=== PATIENT | male | born 1950 | race Caucasian/White ===

== ENCOUNTER → 2016-08-11 | Outpatient (CLI) | payer OTHER ==
[~2016-08-11] MED LIST: ATOR-22 PO; LISI40TA PO; TAMS0.4C38 PO; bladder medication
== END | disposition home or self-care (01) ==
LOC: C.PATHSPEC 17:13
PROVIDERS: ATTEND Urology
DX: C61 Malignant neoplasm of prostate (principal)

== ENCOUNTER → 2016-08-23 | Outpatient (CLI) | payer OTHER ==
[~2016-08-23] MED LIST changes: +OPTIRAY 320 IV PRN
--- NOTE | 2016-08-23 08:52 | DIAGNOSTIC IMAGING REPORT ---
CT OF THE ABDOMEN AND PELVIS WITH CONTRAST CLINICAL HISTORY: Prostate cancer. Elevated PSA. COMPARISON STUDY: None. TECHNIQUE: Following IV administration of 93 mL of Optiray-320, axial images of the abdomen and pelvis were obtained from the lung bases to the proximal femurs. Images were reviewed in the axial, sagittal, and coronal planes. IV contrast was administered without complication. Oral contrast was administered. CT DOSE: 1190.62 mGycm FINDINGS: Lung bases are clear. The liver, adrenal glands and pancreas are unremarkable. There is a splenule. There is no biliary or pancreatic ductal dilatation. Note is made of a 3.8 cm cyst arising from the upper pole of the right kidney. There is an 8 mm cyst within the midpole of the left kidney. There is no hydronephrosis or hydroureter. No enlarged abdominal or pelvic lymph nodes are present. There is a prominent right external iliac lymph node shown on image [id number] that measures 7 mm in short axis diameter. This is not pathologically enlarged. No suspicious osseous lesions are present. There are multiple healed left-sided rib fractures. IMPRESSION: 1. No convincing evidence for metastatic disease within the abdomen or pelvis. 2. Prominent but nonenlarged right external iliac lymph node. This is likely benign but can be assessed on subsequent exams. 3. Multiple healed left-sided rib fractures. No blastic metastases identified within visualized skeletal structures. Electronically signed by: Parth Ross M.D. 08/23/2016 8:50 AM Dictated Date/Time: 08/23/2016 8:39 AM
--- NOTE | 2016-08-23 12:46 | DIAGNOSTIC IMAGING REPORT ---
WHOLE BODY BONE SCAN HISTORY: Prostate cancer. RADIOTRACER: 27.3 mCi Tc-99m MDP STUDY/IMAGES: Planar anterior and posterior whole body imaging was performed 3 hours following the intravenous administration of radiotracer. COMPARISON: Abdomen and pelvis CT 08/23/2016. FINDINGS: Scattered areas of mild radiotracer uptake seen within the shoulders, sternoclavicular joints, lower lumbar spine, cervicothoracic junction, knees, and left first MTP joint suggestive of degenerative change. Mild radiotracer uptake associate with a few left posterior ribs consistent with old, healed fractures. No suspicious areas of radiotracer uptake identified. 2 punctate foci of radiotracer uptake at the midline of the frontal sinuses is unlikely to represent metastatic disease. IMPRESSION: 1. No suspicious areas of radiotracer uptake within the axial or appendicular skeleton to suggest metastatic disease. 2. Scattered areas of radiotracer uptake as described above likely represent a combination of degenerative and posttraumatic changes. 3. There are 2 punctate foci of radiotracer uptake midline of the frontal sinuses which is unlikely to represent metastatic disease. Follow-up is recommended to ensure stability Electronically signed by: Saad Bauer M.D. 08/23/2016 12:44 PM Dictated Date/Time: 08/23/2016 12:41 PM
== END | disposition home or self-care (01) ==
LOC: C.CTS 07:29
PROVIDERS: ATTEND Urology
DX: N52.9 Male erectile dysfunction, unspecified (principal); C61 Malignant neoplasm of prostate; R93.0 Abnormal findings on diagnostic imaging of skull and head, not elsewhere classified

== ENCOUNTER → 2016-10-28 | Day surgery (SDC) | payer OTHER ==
[2016-10-12 11:02] VITALS: BMI 33.0
--- NOTE | 2016-10-12 11:29 | PAT Medication Instructions ---
Service Date October 12, 2016. Current Home Medication List Atorvastatin (Lipitor), 1 TAB PO QAM Lisinopril (Zestril), 40 MG PO QAM Medication Instructions For Your Scheduled Surgery - Hold the following medications the morning of surgery: Lisinopril (Zestril), 40 MG PO QAM - Take the following medications the morning of surgery with a sip of water: Atorvastatin (Lipitor), 1 TAB PO QAM If you have any questions please call us at [phone] or [phone] or [phone]
[2016-10-12 12:08] LABS: URINE APPEARANCE CLEAR (CLEAR); URINE BILIRUBIN NEG (NEG); URINE COLOR YELLOW; URINE EPITHELIAL CELL AUTO 0-5 /lpf (0-5); URINE NITRITE NEG (NEG); URINE PH 5.5 (4.5-7.5); UROBILINOGEN NEG (NEG)
--- NOTE | 2016-10-12 12:11 | DIAGNOSTIC IMAGING REPORT ---
CHEST 2 VIEWS ROUTINE CLINICAL HISTORY: Preoperative chest COMPARISON STUDY: No previous studies for comparison. FINDINGS: The cardiac and mediastinal contours are normal. There is no evidence of focal pulmonary consolidation. There is no evidence of failure. No pleural effusions are visualized.[ There are presumed postsurgical changes in the left shoulder. IMPRESSION: No active disease in the chest. Electronically signed by: Reji Beck M.D. 10/12/2016 12:10 PM Dictated Date/Time: 10/12/2016 12:09 PM
[2016-10-12 12:14] LABS: BASO % 0.3 %; BASO ABS # 0.02 K/uL (0-0.2); COMPLETE YES; EOS % 1.8 %; HEMATOCRIT 42.7 % (42-52); IG% 0.3 %; LYMPH % 24.5 %; LYMPH ABS # 1.52 K/uL (1.2-3.4); MEAN CELL VOLUME 90.9 fL (80-100); MEAN CORPUSCULAR HEMOGLOBIN 30.9 pg (25-34); MEAN PLATELET VOLUME 10.3 fL (7.4-10.4); MONO % 16.4 %; NEUT % 56.7 %; PLATELET COUNT 227 K/uL (130-400); WHITE BLOOD COUNT 6.21 K/uL (4.8-10.8)
[2016-10-12 12:17] LABS: BUN/CREATININE RATIO 16.8 (10-20); CREATININE 1.2 mg/dl (0.60-1.40); POTASSIUM 4.6 mmol/L (3.5-5.1)
[2016-10-12 12:17] LABS: MANUAL MICROSCOPIC REQUIRED? NO; REVIEW REQ? NO
[2016-10-12 12:19] LABS: CALCIUM 9.5 mg/dl (8.5-10.1)
[~2016-10-28] VITALS: Ht 180.3 cm; Wt 108.4 kg
[~2016-10-28] MED LIST changes: +ATROPINE SULFATE 0.1 MG/ML 5ML SYR IV PRN; +CIPROFLOXACIN / D5W 400 MG IV SCH; +CONRAY 60% 50 ML VIAL ONE; +DEXAMETHASONE SOD INJ 4 MG/ML VIAL ONE; +EpHEDrine SULFATE 50MG/5ML SYR ONE; +EpHEDrine SULFATE INJ 50 MG/ML AMP IV PRN; +FENTANYL CITRATE INJ 50 MCG/1 ML 2 ML VIAL IV PRN; +FENTANYL CITRATE INJ 50 MCG/1 ML 2 ML VIAL ONE; +FLUMAZENIL 0.1 MG/1 ML 10 ML VIAL IV PRN; +GENTAMICIN INJ 120 MG in DEXTROSE 5% 100ML 100 ML IV SCH; +GLYCOPYRROLATE INJ 0.2 MG/ML VIAL ONE; +HYDROmorphone INJ 2 MG/ML SYR/VIAL IV PRN; +LABETALOL HCL IV 5 MG/ML 20ML IV PRN; +LACTATED RINGER'S 1000ML 1,000 ML IV SCH; +LARYING-O-JET KIT (LTA) ONE; +LIDOCAINE HCL 2% 2 ML VIAL (20MG/ML) ONE; +MEPERIDINE HCL 25 MG/ML CARP IV PRN; +MIDAZOLAM HCL 1 MG/ML 2ML VIAL ONE; +NALOXONE HCL 0.4 MG/1 ML VIAL/CARP IV PRN; +NEOMYCIN/POLYMYX/BACITR OINT 15 GM TUBE ONE; +NEOSTIGMINE METHYLSULFATE 5 MG/5 ML SYR ONE; +ONDANSETRON INJ 2 MG/ML 2 ML VIAL IV PRN; +ONDANSETRON INJ 2 MG/ML 2 ML VIAL ONE; -OPTIRAY 320 IV PRN; +OXYCODONE/ACETAMINOPHEN 5-325 TAB PO PRN; +PHENAZOPYRIDINE HCL 200 MG TAB PO PRN; +PHENYLEPHRINE 100MCG/ML 5ML SYR IV PRN; +PHENYLEPHRINE 100MCG/ML 5ML SYR ONE; +PROPOFOL IV EMULSION 10 MG/ML 20 ML VIAL IV ONE; +ROCURONIUM BROMIDE 10 MG/ML 5 ML VIAL ONE
[2016-10-28 05:53] VITALS: BP 172/81; PULSE 59; TEMP 36.5; O2SAT 95; Ht 180.3 cm; Wt 108.4 kg
--- NOTE | 2016-10-28 07:12 | History & Physical Bridge Note ---
H&P Re-Evaluation Bridge Note: I have examined the patient, reviewed the History & Physical and in the interval since the performance of the History & Physical I have noted the following changes of clinical significance: No changes noted
--- NOTE | 2016-10-28 09:59 | Discharge Instructions ---
Discharge Instructions Date of Service Oct 28, 2016. Admission Reason for Admission: Prostate Cancer Discharge Discharge Diagnosis / Problem: Prostate cancer s/p brachytherapy of the prostate Discharge Goals Goal(s): Improve disease control, Therapeutic intervention Activity Recommendations Activity Limitations: per Instructions/Follow-up section Lifting Limitations: no more than 25 pounds, gradually increase as tolerated ( over 3-5 days) Exercise/Sports Limitations: rest today, gradually increase as tolerated (over 3-5 days) May Resume Sexual Activity: after follow-up appointment Shower/Bathe: tomorrow Driving or Machine Use: resume 1 day after discharge Proximity cautions as discussed due to radioactive seeds . Discharge Diet Recommended Diet: Regular Diet (good fluid intake) Procedures Procedures Performed: Volume brachy therapy Pending Studies Studies pending at discharge: no Medical Emergencies . Who to Call and When: Medical Emergencies: If at any time you feel your situation is an emergency, please call 911 immediately. . Non-Emergent Contact Non-Emergency issues call your: Urologist Call Non-Emergent contact if: you have a fever, temperature is above 101, your pain is not controlled, your pain is worsening, your pain is unusual for you, your pain is concerning you, wound has increased drainage, wound has increased redness, wound has increased pain . . "Provider Documentation" section prepared by Landen Guzman. . VTE Core Measure Inpt VTE Proph given/why not?: SCD's
--- NOTE | 2016-10-28 10:07 | [facility] Post Operative Brief Note ---
Immediate Operative Summary Operative Date Oct 28, 2016. Pre-Operative Diagnosis Rogerio 4+3 Prostate Cancer Post-Operative Diagnosis Same as pre-operative Procedure(s) Performed Volume brachytherapy of the prostate Surgeon Dr. Landen Guzman MD Process Cheese Cooker Surgeon(s) Dr. Jose Richards Estimated Blood Loss 5 ml Findings 53 seeds placed via 17 needles, 30.4 cc prostate Specimens None per surgeon Drains Silicone harris to gravity Anesthesia GAET Complication(s) None Disposition Recovery Room / PACU
--- NOTE | 2016-10-28 10:11 | DIAGNOSTIC IMAGING REPORT ---
PELVIS 1 OR 2 VIEWS ROUTINE CLINICAL HISTORY: BRACHY THERAPY COMPARISON STUDY: None. FINDINGS: Total fluoroscopy time is 1.8 seconds. A single fluoroscopic spot image of the pelvis. There is contrast within the bladder. Multiple brachytherapy seeds are seen at the expected location of the prostate gland. IMPRESSION: Fluoroscopy provided for brachytherapy seed placement. Electronically signed by: Saad Bauer M.D. 10/28/2016 10:09 AM Dictated Date/Time: 10/28/2016 10:09 AM
--- NOTE | 2016-10-28 10:17 | Anesthesiology Progress Note ---
Anesthesia Post Op Note Date & Time Oct 28, 2016 at 10:17 Vital Signs Pain Intensity: 0 Vital Signs Past 12 Hours Date Time Temp Pulse Resp B/P (MAP) Pulse Ox O2 Delivery O2 Flow Rate FiO2 10/28/16 10:10 59 17 146/69 100 Mask 10 10/28/16 10:00 70 23 149/61 96 Mask 10 10/28/16 09:50 36.1 80 15 135/72 100 Mask 10 10/28/16 05:53 36.5 59 18 172/81 (111) 95 Room Air Notes Mental Status: alert / awake / arousable, participated in evaluation Pt Amnestic to Procedure: Yes Nausea / Vomiting: adequately controlled Pain: adequately controlled Airway Patency, RR, SpO2: stable & adequate BP & HR: stable & adequate Hydration State: stable & adequate Anesthetic Complications: no major complications apparent
[2016-10-28 10:35] VITALS: BP 142/73; PULSE 53; TEMP 36.4; O2SAT 97
[2016-10-28 11:05] VITALS: BP 136/72; PULSE 55; TEMP 36.6; O2SAT 97
[2016-10-28 11:35] VITALS: BP 135/72; PULSE 53; TEMP 36.6; O2SAT 97
--- NOTE | 2016-11-03 14:10 | OPERATIVE REPORT ---
DATE OF OPERATION: 10/28/2016 PREOPERATIVE DIAGNOSIS: [place] 4+3 adenocarcinoma of the prostate. POSTOPERATIVE DIAGNOSIS: Same. PROCEDURES PERFORMED: Include volumetric ultrasound guided analysis and brachytherapy of the prostate gland. SURGEONS: Dr. Landen Guzman and Dr. Garrett Richards. MANAGER VIDEO: Adolph Castillo. ANESTHESIA: General anesthesia with endotracheal intubation. ESTIMATED BLOOD LOSS: Minimal. FINDINGS: 53 seeds placed via 17 needles and 30.4 mL prostate gland. COMPLICATIONS: None. ESTIMATED BLOOD LOSS: Minimal. DRAINS LEFT IN PLACE: Include a Danielle catheter to gravity drainage. BRIEF HISTORY: Mr. Villatoro is a pleasant 66-year-old male who I have seen as an outpatient for a new diagnosis of prostate cancer. After discussion of risks and benefits of various forms of intervention, he has decided upon brachytherapy of the prostate gland with planned external beam boost to manage his disease. Please see H&P for further details. He is being brought into the hospital for this purpose. Intravenous antibiotic coverage was provided. SCDs used for DVT prophylaxis. The patient has followed his prep as instructed. PROCEDURE: The patient was properly identified and brought to the operative suite. After identification of appropriate consent on the chart, general anesthesia with endotracheal intubation was initiated. The patient was prepped and draped in standard fashion for this procedure. multimedia instructional designer-out procedure was followed. A transrectal ultrasound probe was placed into the rectum under direct visualization and excellent visualization of the prostate was noted. The volumetric analysis was performed demonstrating 30.4 mL prostate gland. Danielle catheter had been entered into the bladder and after draining the bladder this was filled with [place] and aerated gel placed within the catheter for easier identification over the course of the case. A peripheral pass of needles was performed and after calculation by the radiation oncology service the initial pass of seeds was placed. Five central needles were placed as necessary. After this to complete coverage of the gland with excellent dispersion of the radiation dose throughout the case. As noted, a total of 53 seeds placed via 17 needles were appreciated. [place] were also verified in terms of their location on fluoroscopy where necessary. After completion of the case the fluoroscopic image was taken demonstrating good seed placement. Bladder was drained and transrectal ultrasound probe was removed. Perineal pressure was held and bacitracin placed over the needle passage sites. The patient tolerated the procedure well without difficulties. Anesthesia was reversed. The patient was transferred to recovery room in stable condition. FOLLOW-UP CARE: Trial of void will take place in the radiation oncology suite after imaging was completed. The patient will be discharged home later today. Complete medications as previously prescribed. Outpatient appointments are confirmed. The patient is instructed to contact our service should he note any fevers, chills, nausea, vomiting or other significant difficulties in the postoperative period. I attest to the content of the Intraoperative Record and any orders documented therein. Any exception s are noted below.
== END | disposition home or self-care (01) ==
LOC: C.ACU 05:35
PROVIDERS: ATTEND Urology
DX: C61 Malignant neoplasm of prostate (principal); N52.9 Male erectile dysfunction, unspecified; I10 Essential (primary) hypertension; E78.5 Hyperlipidemia, unspecified; Z79.899 Other long term (current) drug therapy

== ENCOUNTER → 2017-02-25 | Outpatient (CLI) | payer OTHER ==
[~2017-02-25] MED LIST changes: -ATROPINE SULFATE 0.1 MG/ML 5ML SYR IV PRN; -CIPROFLOXACIN / D5W 400 MG IV SCH; -CONRAY 60% 50 ML VIAL ONE; -DEXAMETHASONE SOD INJ 4 MG/ML VIAL ONE; -EpHEDrine SULFATE 50MG/5ML SYR ONE; -EpHEDrine SULFATE INJ 50 MG/ML AMP IV PRN; -FENTANYL CITRATE INJ 50 MCG/1 ML 2 ML VIAL IV PRN; -FENTANYL CITRATE INJ 50 MCG/1 ML 2 ML VIAL ONE; -FLUMAZENIL 0.1 MG/1 ML 10 ML VIAL IV PRN; -GENTAMICIN INJ 120 MG in DEXTROSE 5% 100ML 100 ML IV SCH; -GLYCOPYRROLATE INJ 0.2 MG/ML VIAL ONE; -HYDROmorphone INJ 2 MG/ML SYR/VIAL IV PRN; -LABETALOL HCL IV 5 MG/ML 20ML IV PRN; -LACTATED RINGER'S 1000ML 1,000 ML IV SCH; -LARYING-O-JET KIT (LTA) ONE; -LIDOCAINE HCL 2% 2 ML VIAL (20MG/ML) ONE; -MEPERIDINE HCL 25 MG/ML CARP IV PRN; -MIDAZOLAM HCL 1 MG/ML 2ML VIAL ONE; -NALOXONE HCL 0.4 MG/1 ML VIAL/CARP IV PRN; -NEOMYCIN/POLYMYX/BACITR OINT 15 GM TUBE ONE; -NEOSTIGMINE METHYLSULFATE 5 MG/5 ML SYR ONE; -ONDANSETRON INJ 2 MG/ML 2 ML VIAL IV PRN; -ONDANSETRON INJ 2 MG/ML 2 ML VIAL ONE; -OXYCODONE/ACETAMINOPHEN 5-325 TAB PO PRN; -PHENAZOPYRIDINE HCL 200 MG TAB PO PRN; -PHENYLEPHRINE 100MCG/ML 5ML SYR IV PRN; -PHENYLEPHRINE 100MCG/ML 5ML SYR ONE; -PROPOFOL IV EMULSION 10 MG/ML 20 ML VIAL IV ONE; -ROCURONIUM BROMIDE 10 MG/ML 5 ML VIAL ONE; -bladder medication
[2017-02-25 09:04] VITALS: BP 138/89; PULSE 61; TEMP 36.6; O2SAT 98
--- NOTE | 2017-02-25 10:28 | Radiation Oncology Follow-Up ---
Radiation Oncology Follow-Up Date of Visit Feb 25, 2017. Reason For Visit One-month follow-up in cancer survivorship care plan Radiation Completion Date seed implant on 10-28-2016 and IMRT / IGRT 01-27-2017 Diagnosis (1) Prostate cancer Status: Resolved Onset Date: 06/2010 Location: both lobes of the prostate Histology Subtype: adenocarcinoma Stage: ll Permanent Comment: Status post prostate biopsy June 2010 revealing adenocarcinoma [place] 3+3 Repeat biopsy November 2010 negative for carcinoma Active surveillance with steady rise in PSA to 14.8 Clinical stage cT2a Ultrasound-guided biopsies 08/11/2016 Adenocarcinoma Rogerio 3+3 and 4+3 Prostate volume 41.2 Prostate density 0.359 Lupron injection 22 5 mg 10/21/2016, planned for 6 months Status post prostate seed implant as boost 10/28/2016 53 seeds were placed, 8500 cGy. Status post IMRT/IGRT VMAT completed 01/27/2017 received 4500 cGy Last Edited By: Zoya Cardoso on Feb 03, 2017 08:19 History of Present Illness Mr. Villatoro is a 66-year-old male with a strong family history of prostate cancer. The patient has a maternal uncle who was treated in his early 70s with external radiation. He is now 78 and is alive and well. He has a brother who was diagnosed with prostate cancer treated with a prostatectomy and is alive and well at age 59 and a second brother who was diagnosed with a history of prostate cancer treated with a prostatectomy and is alive and well at age 64. The patient also has 2 sons age 41 and 47. I stressed the importance of their starting their screening process. The patient's was initially diagnosed with a prostate-specific antigen in the range of 6 back in 2009 2010. He was seen by Dr. Johnson a urologic surgeons in [place] who performed ultrasound-guided biopsy on Mr. Villatoro. Reportedly there were positive biopsies were Rogerio grade 3+3. The details of this biopsy will be obtained with request for pathology reports from [facility]. The patient sought a second opinion at [facility] and was seen by Dr. Vides. He performed a repeat biopsy on 11/30/2010. A total of 13 biopsies were taken in all 13 were negative for carcinoma. Accession #: [id number]. Given the likelihood of minimal early stage disease the decision was made at that time to proceed with active surveillance. The patient was followed with serial prostate-specific antigens. He reportedly was found to have a rising prostate-specific antigen and was encouraged to have a repeat biopsy at [facility]. Because of insurance issues however this was not done. On 01/2014 his prostate-specific antigen was 10.62. On 07/31/2014 prostate- specific antigen was 11.74. On 05/19/2016 prostate-specific antigen increased to 14.8. At that time the patient was seen by Dr. Landen Guzman for further evaluation. He had an abnormal digital rectal exam and biopsy was recommended. On 08/11/2016 patient underwent ultrasound-guided prostate biopsies. A total of 14 biopsies were taken. Biopsies from the left base and left mid gland and left anterior were benign. 22 biopsies from the right base were positive for adenocarcinoma Rogerio grade 4+3 involving 60% and 15% of the core tissue samples respectfully. No perineural invasion was seen. The Rogerio pattern 4 represented 80% of the adenocarcinoma. 22 biopsies from the right mid gland were positive for adenocarcinoma Champion grade 4+3 involving 50% and 30% of the core tissue samples respectfully. The Rogerio pattern 4 represented 90% of the adenocarcinoma and was highly suspicious for perineural invasion. One of 2 biopsies from the right apex were positive for adenocarcinoma Champion grade 4+3 involving 10% of the core tissue sample with no perineural invasion seen. The Rogerio pattern 4 was 95% of the tumor. One biopsy of the left anterior were positive for adenocarcinoma Champion grade 3+3 involving 5% of the core tissue sample with no perineural invasion seen. One biopsy from the right anterior were positive for adenocarcinoma Rogerio grade 3+3 involving less than 5% of the core tissue sample with no perineural invasion seen. Therefore a total of 7 out of 14 biopsies were +6 of them on the right and one on the left. 2 of the biopsies were Rogerio grade 3+3 and 5 of the biopsies were Champion grade 4+ 3. The Rogerio pattern 4 was 80-95% of the tumor and there was evidence highly suspicious for perineural invasion. Case: [id number]. The patient return to discuss these findings with Dr. Landen Guzman. He proceeded to stage the patient with CT scan of the abdomen and pelvis and bone scan performed on 08/23/2016. The CT scan of the abdomen and pelvis showed no convincing evidence of metastatic disease within the abdomen or pelvis. There were prominent but not enlarged right external iliac lymph node likely benign but suggested follow-up. There were multiple healed left-sided rib fractures but no blastic metastasis identified. The bone scan showed no suspicious areas or radiotracer uptake to suggest metastatic disease. The patient's clinical stage is therefore T2a Nx [place] grade 4+3 presenting prostate-specific antigen 14.8. Dr. Guzman discussed treatment options with the patient including a discussion of the potential use of robotic radical prostatectomy. He was kind enough to ask us to see the patient to discuss with him the potential radiation treatment options. The patient ultimately made the decision to undergo hormone suppression followed by a prostate seed implant as boost. He'll then have external beam radiation. A prostate seed implant was performed 10/28/2016. 53 seeds were placed. He then returned and underwent IMRT/IGRT VMAT. This was completed 01/27/2017. Interim History He's been doing well over the past month. He has steady improvement in his urinary status. Today he gave an AUA score of 1. His score at the end of treatment was 5. He had been having difficulty with urination and was on Flomax. This was increased to twice a day. He had talked to Dr. Guzman and has now tapered down to 1 per day. He is planning to steadily wean off of the Flomax. He completed expanded prostate cancer index composite for clinical practice and gave a score of 2 of 12 in urinary incontinence symptoms. He gave a score of 0 of 12 urinary irritation symptoms. He gave a score of 0 of 12 bowel symptoms. He gave a score of 9 of 12 sexual symptoms. He gave a score of 2 of 12 and hormonal vitality symptoms. His total was 13 of 60. He did complete 6 months of hormonal suppression. Allergies Coded Allergies: No Known Allergies (Unverified , 10/12/16) Home Medications Scheduled Atorvastatin (Lipitor), 1 TAB PO QAM Lisinopril (Zestril), 40 MG PO QAM Tamsulosin Hcl (Flomax), 1 CAP PO DAILY Review of Systems Gastrointestinal: Symptoms: WNL Oral: Symptoms: No Problems Respiratory: Symptoms: WNL Urinary: Symptoms: WNL Skin: Symptoms: No Problems Additional Notes: He completed a distress management report and answered "no" to all questions. Physical Exam Vital Signs Date Time Temp Pulse Resp B/P (MAP) Pulse Ox O2 Delivery O2 Flow Rate FiO2 02/25/17 09:04 36.6 61 16 138/89 98 Pain: Side: Bilateral Patient Pain Scale: 0 - 10 Initial Pain Intensity: 0.0 Fatigue: None General Appearance: no apparent distress Eyes: normal inspection, EOMI ENT: normal ENT inspection, hearing grossly normal Neck: no adenopathy, thyroid normal Respiratory/Chest: lungs clear, no respiratory distress, no accessory muscle use Cardiovascular: regular rate, rhythm, no gallop, no murmur Abdomen: non tender, soft, no organomegaly Extremities: no pedal edema Neurologic/Psychiatric: no motor/sensory deficits, alert, normal mood/affect Laboratory Studies Test 02/25/17 09:35 Prostate Specific Antigen 0.022 ng/ml (0.000-4.000) Assessment & Plan Plan: A PSA was drawn today. He'll be notified as to the results. She has a recheck appointment with Dr. Guzman next month. He is going to steadily wean off of the Flomax. Today we completed a cancer survivorship care plan. A copy of the document was given to the patient. He was given a survivorship booklet. We asked him to return to our office in 6 months. He may call if he has any questions or concerns in the interim. Total Time In Follow-Up I spent [address] the patient performing examination. I spent 20 minutes reviewing information, preparing the survivorship document, and completing this note. Copy To Landen Guzman MD, Urology; [place] Rodriguez M.D.
== END | disposition home or self-care (01) ==
LOC: C.ONC 08:45
PROVIDERS: ATTEND Physician Assistant Medical
DX: Z08 Encounter for follow-up examination after completed treatment for malignant neoplasm (principal); Z92.3 Personal history of irradiation; Z85.46 Personal history of malignant neoplasm of prostate

== ENCOUNTER → 2017-06-27 | Outpatient (CLI) | payer OTHER ==
--- NOTE | 2017-06-27 16:05 | DIAGNOSTIC IMAGING REPORT ---
L UPPER EXT JOINT WITHOUT CLINICAL HISTORY: LT ROTATOR CUFF TEAR postoperative pain TECHNIQUE: Multiaxial MRI acquisition COMPARISON STUDY: None FINDINGS: Extensive postoperative change involving the rotator cuff and lateral margin of the humeral head. Multiple sutures are present. There appears to be disruption of the supraspinatus musculotendinous junction. There is partial retraction of the supraspinatus muscle. There is a partial tear of the subscapularis tendon. The infraspinatus tendon appears to be grossly intact. Generalized degenerative changes of the glenohumeral joint. Glenoid labrum shows evidence for deterioration circumferentially. IMPRESSION: 1. Extensive postoperative and degenerative change throughout the left shoulder. 2. Full-thickness tear of the supraspinatus musculotendinous junction with moderate fatty replacement of the supraspinatus. 3. Partial thickness tear with superimposed tendinopathy of the subscapularis tendon. 4. Small joint effusion with a rather extensive post procedural granulation type tissue. 5. Small caliber biceps tendon raising the possibility of a high-grade partial tear. The above report was generated using voice recognition software. It may contain grammatical, syntax or spelling errors. Electronically signed by: Navid Pedraza M.D. 06/27/2017 4:04 PM Dictated Date/Time: 06/27/2017 3:41 PM
== END | disposition home or self-care (01) ==
LOC: C.MRIBC 14:48
PROVIDERS: ATTEND Orthopaedic Surgery
DX: M75.102 Unspecified rotator cuff tear or rupture of left shoulder, not specified as traumatic (principal)

== ENCOUNTER → 2017-08-25 | Outpatient (CLI) | payer OTHER ==
[2017-02-25 09:04] VITALS: BP 138/89; PULSE 61
[~2017-08-25] MED LIST changes: +RXC5 PO
[2017-08-25 14:08] VITALS: BP 142/87; PULSE 75; TEMP 36.7; O2SAT 96
--- NOTE | 2017-08-25 14:55 | Radiation Oncology Follow-Up ---
Radiation Oncology Follow-Up Date of Visit Aug 25, 2017. Reason For Visit Six-month follow-up Radiation Completion Date Seed Implant - 10/28/16, IMRT - 01/27/17 Diagnosis (1) Prostate cancer Status: Resolved Onset Date: ~ 06/2010 Location: Both lobes of the prostate Histology Subtype: Adenocarcinoma Stage: ll Permanent Comment: Status post prostate biopsy June 2010 revealing adenocarcinoma [place] 3+3 Repeat biopsy November 2010 negative for carcinoma Active surveillance with steady rise in PSA to 14.8 Clinical stage cT2a Ultrasound-guided biopsies 08/11/2016 Adenocarcinoma Rogerio 3+3 and 4+3 Prostate volume 41.2 Prostate density 0.359 Lupron injection 22 5 mg 10/21/2016, planned for 6 months Status post prostate seed implant as boost 10/28/2016 53 seeds were placed, 8500 cGy. Status post IMRT/IGRT VMAT completed 01/27/2017 received 4500 cGy Last Edited By: Zoya Cardoso on Feb 03, 2017 08:19 History of Present Illness Mr. Villatoro has a strong family history of prostate cancer. The patient has a maternal uncle who was treated in his early 70s with external radiation. He is now 78 and is alive and well. He has a brother who was diagnosed with prostate cancer treated with a prostatectomy and is alive and well at age 59 and a second brother who was diagnosed with a history of prostate cancer treated with a prostatectomy and is alive and well at age 64. The patient also has 2 sons age 41 and 47. I stressed the importance of their starting their screening process. The patient's was initially diagnosed with a prostate-specific antigen in the range of 6 back in 2009 2010. He was seen by Dr. Alex traore urologic surgeons in [place] who performed ultrasound-guided biopsy on Mr. Villatoro. Reportedly there were positive biopsies were [place] grade 3+3. The details of this biopsy will be obtained with request for pathology reports from [facility]. The patient sought a second opinion at [facility] and was seen by Dr. Vides. He performed a repeat biopsy on 11/30/2010. A total of 13 biopsies were taken in all 13 were negative for carcinoma. Accession #: [id number]. Given the likelihood of minimal early stage disease the decision was made at that time to proceed with active surveillance. The patient was followed with serial prostate-specific antigens. He reportedly was found to have a rising prostate-specific antigen and was encouraged to have a repeat biopsy at [facility]. Because of insurance issues however this was not done. On 01/2014 his prostate-specific antigen was 10.62. On 07/31/2014 prostate- specific antigen was 11.74. On 05/19/2016 prostate-specific antigen increased to 14.8. At that time the patient was seen by Dr. Landen Guzman for further evaluation. He had an abnormal digital rectal exam and biopsy was recommended. On 08/11/2016 patient underwent ultrasound-guided prostate biopsies. A total of 14 biopsies were taken. Biopsies from the left base and left mid gland and left anterior were benign. 22 biopsies from the right base were positive for adenocarcinoma Rogerio grade 4+3 involving 60% and 15% of the core tissue samples respectfully. No perineural invasion was seen. The Rogerio pattern 4 represented 80% of the adenocarcinoma. 22 biopsies from the right mid gland were positive for adenocarcinoma Rogerio grade 4+3 involving 50% and 30% of the core tissue samples respectfully. The [place] pattern 4 represented 90% of the adenocarcinoma and was highly suspicious for perineural invasion. One of 2 biopsies from the right apex were positive for adenocarcinoma Rogerio grade 4+3 involving 10% of the core tissue sample with no perineural invasion seen. The [place] pattern 4 was 95% of the tumor. One biopsy of the left anterior were positive for adenocarcinoma Rogerio grade 3+3 involving 5% of the core tissue sample with no perineural invasion seen. One biopsy from the right anterior were positive for adenocarcinoma [place] grade 3+3 involving less than 5% of the core tissue sample with no perineural invasion seen. Therefore a total of 7 out of 14 biopsies were +6 of them on the right and one on the left. 2 of the biopsies were [place] grade 3+3 and 5 of the biopsies were [place] grade 4+ 3. The Rogerio pattern 4 was 80-95% of the tumor and there was evidence highly suspicious for perineural invasion. Case: [id number]. The patient return to discuss these findings with Dr. Landen Guzman. He proceeded to stage the patient with CT scan of the abdomen and pelvis and bone scan performed on 08/23/2016. The CT scan of the abdomen and pelvis showed no convincing evidence of metastatic disease within the abdomen or pelvis. There were prominent but not enlarged right external iliac lymph node likely benign but suggested follow-up. There were multiple healed left-sided rib fractures but no blastic metastasis identified. The bone scan showed no suspicious areas or radiotracer uptake to suggest metastatic disease. The patient's clinical stage is therefore T2a Nx [place] grade 4+3 presenting prostate-specific antigen 14.8. Dr. Guzman discussed treatment options with the patient including a discussion of the potential use of robotic radical prostatectomy. He was kind enough to ask us to see the patient to discuss with him the potential radiation treatment options. The patient ultimately made the decision to undergo hormone suppression followed by a prostate seed implant as boost. He'll then have external beam radiation. A prostate seed implant was performed 10/28/2016. 53 seeds were placed. He then returned and underwent IMRT/IGRT VMAT. This was completed 01/27/2017. Interim History He has been doing well over the past 6 months. He did try stopping Flomax. He did have increased difficulty with urination went off of the medication. He restarted and continues on the Flomax. Today he gave an AUA score of 2. He completed and expanded prostate cancer index composite for clinical practice and gave a score of 2 of 12 and urinary incontinence symptoms. He gives score 0 of 12 and urinary irritation symptoms. He gave a score of 0 12 and bowel symptoms. He gave a score of 2 of 12 and sexual symptoms. He gave a score of 1 of 12 and hormonal vitality symptoms. His total was 5 of 60. He had a PSA February 25, 2017 that was 0.022. Allergies Coded Allergies: No Known Allergies (Unverified , 08/02/17) Home Medications Scheduled Atorvastatin (Lipitor), 1 TAB PO QAM Lisinopril (Zestril), 40 MG PO QAM Scheduled PRN Tamsulosin Hcl (Flomax), 1 CAP PO DAILY PRN for prn Review of Systems Gastrointestinal: Symptoms: WNL Oral: Symptoms: No Problems Respiratory: Symptoms: WNL Urinary: Symptoms: WNL Comments: See AUA & EPIC - Continues flomax Skin: Symptoms: No Problems Physical Exam Vital Signs Date Time Temp Pulse Resp B/P (MAP) Pulse Ox O2 Delivery O2 Flow Rate FiO2 08/25/17 14:08 36.7 75 16 142/87 96 Fatigue: None General Appearance: no apparent distress Eyes: normal inspection, EOMI ENT: normal ENT inspection, hearing grossly normal Respiratory/Chest: lungs clear, no respiratory distress, no accessory muscle use Cardiovascular: regular rate, rhythm, no gallop, no murmur Abdomen: non tender, soft, no organomegaly Anal / Rectum: Normal sphincter tone. Prostate is consistent with a seed implant. No rectal masses no rectal bleeding. Extremities: no pedal edema Neurologic/Psychiatric: no motor/sensory deficits, alert, normal mood/affect Skin: warm/dry Pain Management Patient Reports Pain: No Side: Bilateral Patient Preferred Pain Scale: 0 - 10 Initial Pain Intensity: 0.0 Pain Management Plan He denies pain therefore requires no pain management. Laboratory Laboratory Results: were reviewed Laboratory Comments: Reviewed in the interim history. As a PSA for today is pending. Pathology Pathology Results: were reviewed, and pertinent findings noted in HPI Imaging Imaging Studies: not applicable Assessment & Plan Plan: He will continue regular follow-up with his primary care provider and urology. He has an appointment next month with Dr. Guzman. We discussed alternating visits. The PSA should continue every 6 months. We asked him to return to our office in 1 year. The plan would be for him to see Dr. Guzman again in 6 months after his next visit. He is going to continue on the Flomax. I did review with him that if he would need a refill he may call our office. He plans to get these refilled either with Dr. Guzman or his primary care physician. He may call our office if he has any questions or concerns before his next visit. Total Time In Follow-Up I spent 20 minutes speaking to the patient and performing examination. I spent 15 minutes reviewing information and completing this note. Copy To Landen Guzman MD, Urology; Paresh Vincent D.O.
== END | disposition home or self-care (01) ==
LOC: C.ONC 14:03
PROVIDERS: ATTEND Physician Assistant Medical
DX: Z08 Encounter for follow-up examination after completed treatment for malignant neoplasm (principal); Z92.3 Personal history of irradiation; Z85.46 Personal history of malignant neoplasm of prostate

== ENCOUNTER 2017-09-02 08:47 | Inpatient (IN) | payer OTHER ==
[2017-08-02 10:36] VITALS: BMI 36.0
--- NOTE | 2017-08-02 11:14 | PAT Medication Instructions ---
Service Date Aug 02, 2017. Current Home Medication List Atorvastatin (Lipitor), 1 TAB PO QAM Lisinopril (Zestril), 40 MG PO QAM Tamsulosin Hcl (Flomax), 1 CAP PO DAILY PRN for prn Medication Instructions For Your Scheduled Surgery - Hold the following medications the morning of surgery: Lisinopril (Zestril), 40 MG PO QAM Tamsulosin Hcl (Flomax), 1 CAP PO DAILY PRN for prn - Take the following medications the morning of surgery with a sip of water: Atorvastatin (Lipitor), 1 TAB PO QAM - Take the following medications as scheduled the night before surgery: Tamsulosin Hcl (Flomax), 1 CAP PO DAILY PRN for prn If you have any questions please call us at [phone] or [phone] or [phone]
[2017-08-02 12:30] LABS: BASO % 0.3 %; BASO ABS # 0.02 K/uL (0-0.2); EOS % 1.9 %; EOS ABS # 0.12 K/uL (0-0.5); HEMATOCRIT 36.9 % (42-52); HEMOGLOBIN 12.5 g/dL (14.0-18.0); IG# 0.02 K/uL (0.00-0.02); LYMPH % 17.8 %; LYMPH ABS # 1.12 K/uL (1.2-3.4); MEAN CELL VOLUME 91.8 fL (80-100); MEAN CORPUSCULAR HEMOGLOBIN 31.1 pg (25-34); MEAN CORPUSCULAR HGB CONC 33.9 g/dl (32-36); MEAN PLATELET VOLUME 9.9 fL (7.4-10.4); MONO % 15.4 %; MONO ABS # 0.97 K/uL (0.11-0.59); NEUT % 64.3 %; NEUT ABS # 4.03 K/uL (1.4-6.5); PLATELET COUNT 232 K/uL (130-400); RED CELL DISTRIBUTION WIDTH SD 50.7 fL (36.4-46.3); WHITE BLOOD COUNT 6.28 K/uL (4.8-10.8)
[2017-08-02 12:45] LABS: PTT PATIENT 28.5 SECONDS (21.0-31.0)
[2017-08-02 12:47] LABS: CALCIUM 9.1 mg/dl (8.5-10.1); CREATININE 1.05 mg/dl (0.60-1.40); POTASSIUM 4.1 mmol/L (3.5-5.1)
--- NOTE | 2017-09-01 08:41 | HISTORY & PHYSICAL EXAMINATION ---
DATE OF ADMISSION: 09/02/2017 CHIEF COMPLAINT: Rotator cuff arthropathy of the left shoulder. HISTORY OF PRESENT ILLNESS: Jamil is a 67-year-old male with history of 2 prior rotator cuff repairs. Unfortunately, he has continued to have a lot of pain and weakness of his shoulder. MRI and clinical examination were diagnostic for rotator cuff arthropathy of the left shoulder. After failing conservative treatment, he has elected to proceed with a reverse left shoulder arthroplasty. PAST MEDICAL HISTORY: Significant for hypertension, prostate cancer, and hyperlipidemia. PAST SURGICAL HISTORY: Significant for left rotator cuff repair one done in and the other in , low back surgery in the , Achilles repair in , right rotator cuff repair in the , and hernia repair. ALLERGIES: None. MEDICATIONS: Include lisinopril and atorvastatin. FAMILY HISTORY: Significant for prostate cancer and diabetes. SOCIAL HISTORY: Single, but has a girlfriend locally and 3 children who live locally; has plenty of help at home. He denies any tobacco, alcohol or IV drug use. REVIEW OF SYSTEMS: He complains of left shoulder pain and weakness. All other pertinent review of systems is negative. PHYSICAL EXAMINATION: GENERAL: He is awake, alert and oriented x3. He is in no apparent distress. He is very pleasant. HEENT: Pupils are equal, round, and reactive to light. Extraocular movements are intact. Oral mucosa is pink and moist. HEART: Regular rate per radial pulse. LUNGS: Radha symmetrically bilaterally with no audible breath sounds. ABDOMEN: Soft, nontender, nondistended. MUSCULOSKELETAL: On physical examination of his shoulder, he has full active range of motion, he has 4/5 muscle strength with full can test and external rotation. Negative bear hug and belly press test. Significant pain in the anterolateral subacromial space, mild AC pain. MRI of the shoulder shows a tear of the entire supraspinatus retracted back to the level of the glenoid. There is significant fat atrophy and superior migration of the humeral head. IMPRESSION: Rotator cuff arthropathy of the left shoulder. PLAN: Will proceed with a reverse left shoulder arthroplasty. Postoperatively, he will be placed in an arm sling and kept overnight for postoperative medical management.
[~2017-09-02] VITALS: Ht 177.8 cm; Wt 115.1 kg
[2017-09-02] VITALS (9 sets, daily range): BP systolic 104–135; BP diastolic 69–84; PULSE 53–83; TEMP 36.3–36.5; O2SAT 95–98; Ht 177.8 cm; Wt 115.1 kg
[~2017-09-02 08:47] MED LIST changes: +ACETAMINOPHEN 500 MG TAB PO SCH; +ATROPINE SULFATE 0.1 MG/ML 5ML SYR IV PRN; +CEFAZOLIN 2000MG IV PUSH 15 ML IV SCH; +EpHEDrine SULFATE INJ 50 MG/ML AMP IV PRN; +FAMOTIDINE 20 MG TAB PO SCH; +FENTANYL CITRATE INJ 50 MCG/1 ML 2 ML VIAL IV PRN; +GABAPENTIN 300 MG CAP PO SCH; +LACTATED RINGER'S 1000ML 1,000 ML IV SCH; +LACTATED RINGER'S 1000ML IV SCH; +ONDANSETRON INJ 2 MG/ML 2 ML VIAL IV PRN; +ROPIVACAINE 0.5% 5 MG/ML 30 ML VIAL ONE; +ROPIVACAINE 5MG/ML 30 ML 150 MG, BUPIVACAINE 0.5% MPF INJ 30 ML, EpINEphrine HCL INJ 0.... INFIL SCH; -RXC5 PO
[2017-09-02] MEDS ORDERED: FENTANYL CITRATE INJ 50 MCG/1 ML 2 ML VIAL ONE (09:54)
[2017-09-02] MEDS ORDERED: MIDAZOLAM HCL 1 MG/ML 2ML VIAL ONE (09:54)
[2017-09-02] MEDS ORDERED: ORTHO JOINT ANESTHETIC ONE (12:05)
[2017-09-02] MEDS ORDERED: BACITRACIN 50000 UNIT VIAL ONE (12:08)
--- NOTE | 2017-09-02 14:05 | [facility] Post Operative Brief Note ---
Immediate Operative Summary Operative Date Sep 02, 2017. Pre-Operative Diagnosis Rotator Cuff Arthropathy, Left Shoulder Post-Operative Diagnosis Rotator Cuff Arthropathy, Left Shoulder Procedure(s) Performed Left Reverse Total Shoulder Arthroplasty Surgeon Dr. Roque Lou [employer] Assistant Surgeon(s) Dallas Roland PA-C Estimated Blood Loss 300ML Findings Consistent with Post-Op Diagnosis Specimens Permanent Solution: A.) Left Humeral Head Anesthesia Type General Regional Complication(s) none Disposition Disposition: Recovery Room / PACU
[2017-09-02] MEDS ORDERED: ONDANSETRON INJ 2 MG/ML 2 ML VIAL IV PRN (14:15)
[2017-09-02] MEDS ORDERED: OXYCODONE HCL IR 5 MG TAB (IMMEDIATE RELEASE) PO PRN (14:15)
[2017-09-02] MEDS ORDERED: BISACODYL 10 MG SUPP PR PRN (14:15)
[2017-09-02] MEDS ORDERED: MoRPHine SULFATE 2 MG/ML CARP IV PRN (14:15)
[2017-09-02] MEDS ORDERED: MAGNESIUM HYDROXIDE SUSP 30 ML UDC PO PRN (14:15)
[2017-09-02] MEDS ORDERED: SOD PHOSPHATE/SOD BIPHOSPHATE ENEMA 132 ML BTL PR PRN (14:15)
[2017-09-02] MEDS ORDERED: METOCLOPRAMIDE HCL INJ 5 MG/ML 2 ML VIAL IV PRN (14:15)
[2017-09-02] MEDS ORDERED: NALOXONE HCL 0.4 MG/1 ML VIAL/CARP IV PRN (14:15)
[2017-09-02] MEDS ORDERED: ONDANSETRON INJ 2 MG/ML 2 ML VIAL ONE (15:23)
[2017-09-02] MEDS ORDERED: EpHEDrine SULFATE 50MG/5ML SYR ONE (15:23)
[2017-09-02] MEDS ORDERED: ROCURONIUM BROMIDE 10 MG/ML 5 ML VIAL IV ONE (15:23)
[2017-09-02] MEDS ORDERED: SUCCINYLCHOLINE CHLORIDE 20 MG/ML 10 ML VIAL IV ONE (15:23)
[2017-09-02] MEDS ORDERED: PROPOFOL IV EMULSION 10 MG/ML 20 ML VIAL IV ONE (15:23)
[2017-09-02] MEDS ORDERED: LIDOCAINE HCL 2% 2 ML VIAL (20MG/ML) ONE (15:23)
[2017-09-02] MEDS ORDERED: DEXAMETHASONE SOD INJ 4 MG/ML VIAL ONE (15:23)
--- NOTE | 2017-09-02 15:28 | Anesthesiology Progress Note ---
Anesthesia Post Op Note Date & Time Sep 02, 2017 at 15:27 Vital Signs Pain Intensity: 0 Vital Signs Past 12 Hours Date Time Temp Pulse Resp B/P (MAP) Pulse Ox O2 Delivery O2 Flow Rate FiO2 09/02/17 15:15 36.5 56 16 109/66 97 Nasal Cannula 3 09/02/17 15:00 36.5 54 16 109/66 97 Nasal Cannula 3 09/02/17 14:45 58 16 110/67 97 Nasal Cannula 3 09/02/17 14:35 59 16 99/60 97 Nasal Cannula 3 09/02/17 14:25 61 16 96/55 100 Oxymask 7 09/02/17 14:15 36 60 16 100/58 100 Oxymask 7 09/02/17 10:28 36.5 18 135/84 96 Room Air 09/02/17 09:41 96 Room Air 09/02/17 09:29 36.5 53 18 135/84 Notes Mental Status: alert / awake / arousable, participated in evaluation Pt Amnestic to Procedure: Yes Nausea / Vomiting: adequately controlled Pain: adequately controlled Airway Patency, RR, SpO2: stable & adequate BP & HR: stable & adequate Hydration State: stable & adequate Anesthetic Complications: no major complications apparent Anesthetic Complications: interscalene nerve block working well.
--- NOTE | 2017-09-02 15:32 | DIAGNOSTIC IMAGING REPORT ---
L SHOULDER MIN 2 VIEWS ROUTINE HISTORY: 67 years-old Male Post-op left shoulder total joint arthroplasty. Degenerative joint disease. COMPARISON: Left shoulder radiographs 03/21/2017 TECHNIQUE: 3 views of the left shoulder FINDINGS: Postoperative changes from recent reverse left shoulder total joint arthroplasty with satisfactory alignment. There is moderate marginal spurring about the acromium with moderate degenerative changes of the AC joint. Skin cady are noted along with surgical drain and expected postsurgical soft tissue swelling and deep tissue air. Healed chronic fracture of the posterior left sixth and seventh ribs. IMPRESSION: Status post reverse left shoulder total joint arthroplasty with satisfactory alignment. The above report was generated using voice recognition software. It may contain grammatical, syntax or spelling errors. Electronically signed by: Shar French M.D. 09/02/2017 3:31 PM Dictated Date/Time: 09/02/2017 3:29 PM
--- NOTE | 2017-09-02 16:16 | OPERATIVE REPORT ---
DATE OF OPERATION: 09/02/2017 PREOPERATIVE DIAGNOSIS: Rotator cuff arthropathy of the left shoulder. POSTOPERATIVE DIAGNOSIS: Rotator cuff arthropathy of the left shoulder. PROCEDURE: Left reverse total shoulder arthroplasty. SURGEON: Dr. Roque Lou. [facility] ARCHEOLOG[facility] PROFESSOR: Juvencio Roland PA-C, whose assistance was necessary for retraction and closure. ANESTHESIA: General with left interscalene nerve block. COMPLICATIONS: None. CONDITION: Stable to PACU. IMPLANTS USED: I used a BiomSoundflavor comprehensive reverse left shoulder arthroplasty system with a size 15 mm mini pressfit stem, a 44 mm humeral tray, with a 36 mm standard poly, a 36 mm eccentric glenosphere, 25 mm mini baseplate, a single central screw, and 2 peripheral locking screws. INDICATIONS: Jamil is a pleasant 67-year-old male who has had 2 prior rotator cuff repairs. Unfortunately, he continued to have a lot of pain and weakness of his shoulder. MRI and clinical examination were diagnostic for rotator cuff arthropathy of the left shoulder. After failing conservative treatment, he elected to undergo reverse shoulder arthroplasty. OPERATION AND FINDINGS: On September 02, 2017, he arrived at [facility] for the above procedure. He was seen in the preoperative holding area, and the operative extremity was identified and signed. He was given a preoperative antibiotic and left interscalene nerve block. He was taken back to the operating room, laid on table in supine position, and put under general anesthesia. The left shoulder was then prepped and draped in sterile fashion, timeout was done, and the patient's operative extremity was properly identified. A deltopectoral approach was used. Dissection was taken down through the fascia, and the deltoid was retracted laterally, and the conjoined tendon was retracted medially. There was significant amount of scarring in the area. Time was spent with a Negron elevator to release all the subacromial and subdeltoid adhesions. The subscapularis was then tenotomized off the lesser tuberosity with 1 cm of cuff tissue remaining. The proximal humerus was easily exposed. Sequential reaming up to a size 15 mm reamer was done. Off that reamer, a proximal humeral resection guide was placed, and the humerus was resected at 135 degrees of inclination and 20 degrees of retroversion. The head was removed, and glenoid was exposed. Time was spent doing a complete circumferential capsulolabral release. The Biomet signature guide was then snapped on to the anterior glenoid, and a guidepin was placed in the reverse total shoulder arthroplasty hole. A 25 mm mini baseplate was reamed, and then the mini baseplate was impacted into place. A single central screw was placed followed by superior and inferior locking screws. A 36 mm eccentric glenosphere was then impacted into place. The proximal humerus was then exposed. Sequential broaching up to a size 15 broach was done. Off that broach, a standard humeral tray was trialed. The shoulder was reduced, brought through a full range of motion and felt to be stable. The shoulder was then dislocated. The broach was removed. The final size 15 implant was impacted into place. The humeral bearing was snapped into the humeral tray, and the ring lock mechanism was engaged. The humeral tray was then impacted on to the humeral stem. The shoulder was reduced and brought through a full range of motion and felt to be stable. The subscapularis was tenodesed back to the lesser tuberosity with transosseous FiberWire sutures and [id number] sutures. The surrounding soft tissues were injected with 100 mL of an orthopedic pain control cocktail. The entire joint was irrigated with 3 L normal saline solution with bacitracin. The axillary nerve was palpated. A drain was placed. Skin was closed with 2-0 Vicryl, 3-0 V-Loc suture, and cady. He was then placed in a soft dressing and a regular arm sling. He was then extubated, transferred to a [facility], and taken to the postanesthesia care unit in stable condition. He tolerated procedure well. I attest to the content of the Intraoperative Record and any orders documented therein. Any exception s are noted below.
[2017-09-02] MEDS: POTASSIUM CHLORIDE INJ 10 MEQ in SODIUM CHLORIDE 0.9% 1000ML 1,000 ML IV SCH (16:26)
[2017-09-02] MEDS: KETOROLAC TROMETHAMINE 15 MG/ML VIAL IV. SCH ×2 (16:27→22:32)
[2017-09-02] MEDS: CEFAZOLIN IV 2,000 MG in SYRINGE 0 ML IV SCH (20:23)
[2017-09-02] MEDS: DOCUSATE SODIUM 100 MG CAP PO SCH (20:30)
[2017-09-02] MEDS ORDERED: SENNA 8.6 MG TAB PO SCH (21:00)
[2017-09-02] MEDS: ACETAMINOPHEN IV 1,000 MG in EMPTY BAG 0 ML IV SCH (22:32)
[2017-09-03] MEDS ORDERED: TAMSULOSIN HCL 0.4 MG CAP PO PRN (00:30)
[2017-09-03] MEDS ORDERED: NURSING VERBAL MED ORDER ONE (00:30)
[2017-09-03] MEDS: POTASSIUM CHLORIDE INJ 10 MEQ in SODIUM CHLORIDE 0.9% 1000ML 1,000 ML IV SCH (02:05)
[2017-09-03 02:34] VITALS: BP 128/74; PULSE 70; TEMP 36.5; O2SAT 97
[2017-09-03] MEDS: CEFAZOLIN IV 2,000 MG in SYRINGE 0 ML IV SCH (03:55)
[2017-09-03] MEDS: KETOROLAC TROMETHAMINE 15 MG/ML VIAL IV. SCH ×2 (03:56→09:39)
[2017-09-03] MEDS: ACETAMINOPHEN IV 1,000 MG in EMPTY BAG 0 ML IV SCH (05:32)
[2017-09-03 06:32] LABS: HEMATOCRIT 28.8 % (42-52); HEMOGLOBIN 9.7 g/dL (14.0-18.0); MEAN CELL VOLUME 90.9 fL (80-100); MEAN CORPUSCULAR HEMOGLOBIN 30.6 pg (25-34); MEAN CORPUSCULAR HGB CONC 33.7 g/dl (32-36); MEAN PLATELET VOLUME 9.8 fL (7.4-10.4); PLATELET COUNT 188 K/uL (130-400); RED CELL DISTRIBUTION WIDTH CV 15.8 % (11.5-14.5); RED CELL DISTRIBUTION WIDTH SD 52.4 fL (36.4-46.3); WHITE BLOOD COUNT 10.78 K/uL (4.8-10.8)
[2017-09-03 07:06] LABS: CALCIUM 8.3 mg/dl (8.5-10.1); CREATININE 1.11 mg/dl (0.60-1.40); POTASSIUM 4.2 mmol/L (3.5-5.1)
[2017-09-03 07:09] VITALS: BP 131/74; PULSE 62; TEMP 36.8; O2SAT 96
--- NOTE | 2017-09-03 08:20 | Discharge Instructions ---
Discharge Instructions Date of Service Sep 03, 2017. Admission Reason for Admission: Left Shoulder Chronic Rotator Cuff Tear Discharge Discharge Diagnosis / Problem: Left Reverse Total Shoulder Discharge Goals Goal(s): Decrease discomfort, Improve function Activity Recommendations Activity Limitations: resume your previous activity . Instructions / Follow-Up Instructions / Follow-Up Activity and Therapy Recommendations: * Wear your sling for 3 weeks, unless otherwise instructed. You may remove your sling to shower and to dress, but otherwise, you should be in your sling at all times, including while sleeping * The shoulder replacement is very stable and you can use your hand while in the sling * Physical Therapy should start about 3-5 days from your day of surgery. Therapy will last about 8-12 weeks * You were shown a series of exercises in the hospital. Do these exercises daily including the exercises you were shown in physical therapy. Medications: * Narcotic You will likely be sent home from the hospital with a prescription for the narcotic pain medication that worked best throughout your stay. * Other medications may be prescribed for specific circumstances. If you have any questions, please call the office at . * Resume previous home medications unless otherwise instructed Dressing Care: If the incision is not draining then you may leave the cady open to air. If there is a little bit of drainage or if the cady are getting stuck on your clothing then cover the incision with a dry dressing. The cady will be removed at your 2 week follow-up appointment. Showering: You may shower 5 days from the day of surgery. Let the soapy shower water run over the cady and pat them dry. Do not scrub or soak the incision. Things To Watch For: * Drainage from the incision site that occurs more than one week after your surgery. * Increased redness at the incision site. * Fever above 102 degrees Fahrenheit. * Unusual chest pain or shortness of breath. * Call [facility] at with any of the above problems Follow-Up Visit: Follow-up with Dr. Lou 2 weeks after your day of surgery. An appointment was probably scheduled when you signed-up for surgery in the office. If you have any questions call Office Instructions: More detailed instructions as well as Frequently Asked Questions were provided in a folder by our office when you signed-up for surgery. Please review these instructions when you get home. If you have any further questions or concerns, please feel free to call the office at [phone] Current Hospital Diet Patient's current hospital diet: Regular Diet Discharge Diet Recommended Diet: Regular Diet Procedures Procedures Performed: Left Reverse Total Shoulder Arthroplasty Pending Studies Studies pending at discharge: no Medical Emergencies . Who to Call and When: Medical Emergencies: If at any time you feel your situation is an emergency, please call 911 immediately. . Non-Emergent Contact Non-Emergency issues call your: Surgeon Call Non-Emergent contact if: wound has increased drainage, wound has increased redness . "Provider Documentation" section prepared by Roque Lou. .
[2017-09-03] MEDS ORDERED: RXC5 PO (08:38)
[2017-09-03] MEDS ORDERED: ATORVASTATIN 20 MG TAB PO SCH (09:00)
[2017-09-03] MEDS ORDERED: LISINOPRIL 40 MG TAB PO SCH (09:00)
[2017-09-03] MEDS ORDERED: MULTIVITAMIN TAB PO SCH (09:00)
--- NOTE | 2017-09-03 09:00 | Anesthesiology Progress Note ---
Anesthesia Post Op Note Date & Time Sep 03, 2017 at 08:59 Vital Signs Pain Intensity: 0.0 Vital Signs Past 12 Hours Date Time Temp Pulse Resp B/P (MAP) Pulse Ox O2 Delivery O2 Flow Rate FiO2 09/03/17 08:11 Room Air 09/03/17 07:09 36.8 62 20 131/74 (93) 96 Room Air 09/03/17 02:34 36.5 70 16 128/74 (92) 97 Room Air 09/02/17 23:40 Room Air 09/02/17 23:34 36.5 67 16 118/71 (87) 95 Room Air Notes Mental Status: alert / awake / arousable, participated in evaluation Pt Amnestic to Procedure: Yes Nausea / Vomiting: adequately controlled Pain: adequately controlled Airway Patency, RR, SpO2: stable & adequate BP & HR: stable & adequate Hydration State: stable & adequate Anesthetic Complications: no major complications apparent Block still partially in place but resolving.
[2017-09-03] MEDS: DOCUSATE SODIUM 100 MG CAP PO SCH (09:02)
--- NOTE | 2017-09-03 09:21 | PROGRESS NOTE ---
DATE: 09/03/2017 CHIEF COMPLAINT: Status post reverse left shoulder arthroplasty, postop day #1. PROGRESS: Jamil was seen and examined at bedside today. Overall, he is doing very well. He says he does not have any pain in his shoulder. He is very happy with his progress to this point. He has no complaints. He is able to get some sleep last night. PHYSICAL EXAMINATION: RIGHT SHOULDER: The dressing is clean and dry. The drain is to suction. His radial, median and ulnar nerves were all checked and intact at his wrist. His axillary nerve was not checked yet. He is wearing a sling as instructed. DATA: He has an H and H today of 9.7 and 28.8. His glucose is 136. His creatinine is 1.1. Vital signs are all stable on room air. He is voiding on his own. IMPRESSION: Status post reverse left shoulder arthroplasty, postop day #1. PLAN: Overall, he is doing very well. He is not having any pain in his shoulder. He is happy with his progress. He will be seen by therapy today to do hand, wrist, elbow and pendulum exercises. We will plan to discharge him to home later this morning.
[2017-09-03 09:56] VITALS: BP 131/74; PULSE 62; TEMP 36.8; O2SAT 96
[2017-09-03 12:48] VITALS: BP 118/71; PULSE 67; O2SAT 96
--- NOTE | 2017-09-05 07:44 | DISCHARGE SUMMARY ---
DISCHARGE DIAGNOSIS: Rotator cuff arthropathy of the left shoulder. PROCEDURE: Left reverse shoulder arthroplasty on 09/02/[address] Roque Lou. DISCHARGE INSTRUCTIONS: 1. Oxycodone 5 mg every 4 hours as needed for pain. 2. Lipitor 20 mg daily. 3. Zestril 40 mg daily. 4. Flomax 0.4 mg daily as needed. 5. Left arm sling for 3 weeks. 6. Follow up with Dr. Lou in 2 weeks. 7. Call the office of Dr. Lou with any questions or concerns. HOSPITAL COURSE: Jamil is a pleasant 67-year-old male who presented to my office with chronic pain and weakness of his left shoulder. He had 2 previous rotator cuff repairs in the past. MRI and clinical examination were diagnostic for rotator cuff arthropathy of the left shoulder and after failing conservative treatment, he elected to undergo a reverse left shoulder arthroplasty. On 09/02/2017, he arrived at [facility] and underwent a left shoulder replacement without complication. He had his general anesthetic and a left interscalene nerve block. Postoperatively, he was placed in an arm sling and discharged to general orthopedic floor. His hospital course was uneventful. On postop day #1, his H&H was stable at 9. 7 and 28.8. He was able to participate well with physical therapy doing hand, wrist, elbow and pendulum exercises. His pain was very well controlled. He was subsequently discharged to home with the above instructions.
== END 2017-09-03 11:25 | disposition home or self-care (01) | DRG 483 ==
LOC: C.ACU 08:47 → C.3E 14:09 → ENRESERV 14:50
PROVIDERS: ADMIT Orthopaedic Surgery; ATTEND Orthopaedic Surgery
PROC: 0RRK00Z Replacement of Left Shoulder Joint with Reverse Ball and Socket Synthetic Substitute, Open Approach (ICD-10-PCS; principal; 2017-09-02 11:15)
DX: M12.812 Other specific arthropathies, not elsewhere classified, left shoulder (principal); M75.102 Unspecified rotator cuff tear or rupture of left shoulder, not specified as traumatic; I10 Essential (primary) hypertension; E78.5 Hyperlipidemia, unspecified; Z79.899 Other long term (current) drug therapy